=== PATIENT | male | born 1975 | race Two or more races ===

== ENCOUNTER 2018-02-24 18:53 | Inpatient (IN) | payer MEDICAID ==
[~2018-02-24] VITALS: Ht 152.4 cm; Wt 52.2 kg
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
[2018-02-24] MEDS ORDERED: TDAP [DIPH/PERTUSSIS/TET] 0.5 ML VIAL IM ONE ×2 (19:30→20:03)
[2018-02-24] MEDS ORDERED: ONDANSETRON HCL/PF 4 MG/2 ML VIAL ONE (20:15)
--- NOTE | 2018-02-24 20:22 | NUR ---
18g left fa iv started, blood sample obtianed and sent to lab. medicated pt as ordered
[2018-02-24 20:27] LABS: BASOPHILS % (AUTO) 0.3 % (0.0-2.0); EOSINOPHILS % (AUTO) 2.9 % (0.0-6.0); HEMATOCRIT 45 % (39-51); HEMOGLOBIN 15.4 g/dL (13.5-17.5); LYMPHOCYTES # (AUTO) 1.5 /CMM (0.8-4.8); LYMPHOCYTES % (AUTO) 13.8 % (20.0-44.0); MEAN CORPUSCULAR HGB CONC 34 g/dl (31.0-36.0); MEAN CORPUSCULAR VOLUME 91 fL (80-96); MONOCYTES # (AUTO) 0.5 /CMM (0.1-1.30); MONOCYTES % (AUTO) 4.8 % (2.0-12.0); NEUTROPHILS # (AUTO) 8.3 /CMM (1.8-8.9); NEUTROPHILS % (AUTO) 78.2 % (43.0-81.0); PLATELET COUNT (AUTO) 408 /CMM (150-450); RDW COEFFICIENT OF VARIATION 12.9 (11.5-15.0); RED BLOOD CELL COUNT(AUTO) 4.99 MIL/uL (4.5-6.0); WHITE BLOOD COUNT (AUTO) 10.6 K/uL (4.3-11.0)
[2018-02-24] MEDS ORDERED: ONDANSETRON HCL/PF 4 MG/2 ML VIAL IVP ONE (20:30)
[2018-02-24] MEDS ORDERED: IV NS 0.9% 1,000 ML BAG IV ONE (20:30)
[2018-02-24 20:42] LABS: INR 0.92 (0.85-1.15)
[2018-02-24 20:44] LABS: ALANINE AMINOTRANSFERASE 25 U/L (12-78); ALBUMIN 3.1 g/dL (3.4-5.0); ALCOHOL, BLOOD < 3 mg/dL (0-0); ALKALINE PHOSPHATASE 90 U/L (46-116); ASPARTATE AMINOTRANSFERASE 21 U/L (15-37); BILIRUBIN,TOTAL 0.4 mg/dL (0.2-1.0); CALCIUM, SERUM 8.5 mg/dL (8.5-10.1); CARBON DIOXIDE 26 mmol/L (21-32); CHLORIDE 103 mmol/L (98-107); GLUCOSE 244 mg/dL (74-106); POTASSIUM 3.7 mmol/L (3.5-5.1); SODIUM SERUM 136 mmol/L (136-145); TOTAL PROTEIN, SERUM 6.6 g/dL (6.4-8.2); UREA NITROGEN, BLOOD 16 mg/dL (7-18)
[2018-02-24 21:15] LABS: APPEARANCE,URINE Clear (CLEAR); BILIRUBIN,URINE SMALL (NEGATIVE); BLOOD, URINE Trace-lysed Ery/uL (NEGATIVE); COLOR,URINE Yellow (YELLOW); KETONES,URINE 15 (NEGATIVE); LEUKOCYTE ESTERASE ,URINE Negative (NEGATIVE); NITRITE, URINE Negative (NEGATIVE); PH,URINE 5.5 (5.0-8.0); PROTEIN,URINE Negative (NEGATIVE); UGLUCOSE 250 MG/DL mg/dL (NEGATIVE)
[2018-02-24 21:30] LABS: BACTERIA,URINE Few /HPF (None Seen); SQUAMOUS EPITHELIAL CELL,UR Few /HPF (None Seen); WBC,URINE 0-2 /HPF (0-3)
[2018-02-24 21:40] VITALS: BP 115/72
[2018-02-24 21:45] VITALS: BP 115/72
--- NOTE | 2018-02-24 21:48 | NUR ---
TRANSPORTED PT TO TELE BED
[2018-02-24] MEDS ORDERED: HYDROCODONE/APAP 5/325MG 1 EACH TABLET PO PRN (23:30)
[2018-02-24] MEDS ORDERED: ONDANSETRON HCL/PF 4 MG/2 ML VIAL IVP PRN (23:30)
[2018-02-24] MEDS ORDERED: ACETAMINOPHEN 325 MG TABLET PO PRN (23:30)
[2018-02-24] MEDS ORDERED: MAGNESIUM HYDROXIDE 30 ML UDC PO PRN (23:30)
[2018-02-24] MEDS ORDERED: Z GUARD REMEDY 2 OZ OINT TP PRN (23:30)
[2018-02-24] MEDS ORDERED: ZOLPIDEM TARTRATE 5 MG TABLET PO PRN (23:30)
[2018-02-25] VITALS: BP 106/69
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
--- NOTE | 2018-02-25 03:54 | NUR ---
sinus abrahan on monitor, was kept on non rebreather mask since from ER, Billy,tire cord weaver came and saw pt and no order change. will continue to monitor,all needs attended.call light at reached.
[2018-02-25 04:16] VITALS: BP 147/84
[2018-02-25 04:36] VITALS: BP 147/84
[2018-02-25 06:13] LABS: BASOPHILS % (AUTO) 0.3 % (0.0-2.0); EOSINOPHILS % (AUTO) 3.6 % (0.0-6.0); HEMATOCRIT 42 % (39-51); HEMOGLOBIN 14.2 g/dL (13.5-17.5); LYMPHOCYTES # (AUTO) 2.1 /CMM (0.8-4.8); LYMPHOCYTES % (AUTO) 22.7 % (20.0-44.0); MEAN CORPUSCULAR HGB CONC 34 g/dl (31.0-36.0); MEAN CORPUSCULAR VOLUME 92 fL (80-96); MONOCYTES # (AUTO) 0.8 /CMM (0.1-1.30); MONOCYTES % (AUTO) 8.3 % (2.0-12.0); NEUTROPHILS # (AUTO) 6.1 /CMM (1.8-8.9); NEUTROPHILS % (AUTO) 65.1 % (43.0-81.0); PLATELET COUNT (AUTO) 358 /CMM (150-450); RDW COEFFICIENT OF VARIATION 13.4 (11.5-15.0); RED BLOOD CELL COUNT(AUTO) 4.57 MIL/uL (4.5-6.0); WHITE BLOOD COUNT (AUTO) 9.3 K/uL (4.3-11.0)
[2018-02-25 06:44] LABS: CALCIUM, SERUM 8.2 mg/dL (8.5-10.1); CREATININE 0.8 mg/dL (0.6-1.3); MAGNESIUM 1.7 mg/dL (1.8-2.4); PHOSPHORUS 2.6 mg/dL (2.5-4.9); POTASSIUM 4.4 mmol/L (3.5-5.1)
--- NOTE | 2018-02-25 07:30 | NUR ---
POCKET CLOSER NOTES PATIENT IS A/O X4, RECEIVED PATIENT ON NON-REBREATHER MASK @10LPM. SINUS RHYTHM HR 61 ON TELE MONITOR. IV SITE ON LEFT FOREARM 18g: PATENT AND INTACT. FLUSHES WELL. DENIES ANY PAIN. SAFETY MEASURES IN PLACE. WILL CONTINUE TO MONITOR. CALL IN WITHIN REACH.
[2018-02-25 08:00] VITALS: BP_SYST 105; BP_SYST 145; BP_DIAS 64; BP_DIAS 74
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
--- NOTE | 2018-02-25 10:28 | NUR ---
Seen by Carlin Park NP. Titrated Oxygen to 2lpm via nasal cannula. Patient tolerated well. O2 sat 99% with no SOB noted. Per Jarett Park NP, Dr. Bhagat to see patient for consult.
[2018-02-25] MEDS ORDERED: IOHEXOL-300 100 ML VIAL IV ONE (11:30)
[2018-02-25] MEDS ORDERED: CT SWABBABLE VALVE TRANS SET 1 EA INFUS.SET MC ONE (11:30)
[2018-02-25] MEDS: Magnesium 1GM/D5W 100ML PREMIX 100 ML IV SCH ×2 (12:30→13:25)
[2018-02-25 16:00] VITALS: BP_SYST 106; BP_SYST 110; BP_DIAS 60; BP_DIAS 61
--- NOTE | 2018-02-25 18:44 | NUR ---
MS RN CLOSING NOTES VITAL SIGNS REMAINED STABLE. AFEBRILE DURING SHIFT. LEFT FOREARM 18g. PATENT AND INTACT. LOW MAGNESIUM TODAY 1.7, SUPPLEMENTED ORDERED. OXYGEN AT 2LPM VIA NASAL CANNULA, PATIENT TOLERATED WELL. O2 SAT 99-100%. PER DR. MCKNIGHT, PATIENT IS STABLE FOR DISCHARGE WITH APPROPRIATE PRECAUTIONS. SAFETY MEASURES IN PLACED. CALL LIGHT WITHIN REACH. WILL ENDORSED TO ONCOMING RN.
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
[2018-02-25 20:00] VITALS: BP 102/60
--- NOTE | 2018-02-25 20:30 | NUR ---
MS/FIELD SOFTWARE ENGINEER; RECEIVED PT'S REPORTS FROM MICHAEL JADE FOR CONTINUITY OF CARE. AT THIS TIME PT IN BED SLEEPING . BREATHING NON LABORED. WITH O2 2L NC ON. BED ON LOWER POSITION AND LOCKED FOR SAFETY. SIDE RAILS X2 ARE UP FOR SAFETY. URINAL AT THE BED SIDE WITH 200 ML CLEAR YELLOW URINE. WILL CONTINUE TO MONITOR. CALL LIGHT WITHIN REACH.
--- NOTE | 2018-02-25 20:41 | NUR ---
RN NOTES: GAVE REPORT TO MARGARET KUMARI FOR CHARLEEN.
--- NOTE | 2018-02-26 06:42 | NUR ---
MS/GENERAL SURGEON; SLEPT FAIRLY. BREATHING NON LABORED. VOIDED USED URINAL. DENIES PAIN. CONTINUE TO MONITOR. CALL LIGHT AND URINAL WITHIN REACH. WILL ENDORSE TO THE DAY SHIFT NURSE.
[2018-02-26 07:07] LABS: CALCIUM, SERUM 8.4 mg/dL (8.5-10.1); CREATININE 0.8 mg/dL (0.6-1.3); MAGNESIUM 1.8 mg/dL (1.8-2.4); POTASSIUM 3.7 mmol/L (3.5-5.1)
--- NOTE | 2018-02-26 13:32 | NUR ---
DAYSI and MICHAEL Hoyos met with pt. bedside to discuss discharge plan. MICHAEL Hoyos assisted in Algerian translation. DAYSI gave pt. the following homeless resources: List of Homeless shelters, [facility] [place] [facility]. DAYSI encouraged pt. to go to [facility] to get linked with homeless services. Pt. stated he will go to [facility] located at [address] [place] [address]. OR to get linked with services. Pt. stated, " I need to change my life and find work so I can have some money". Homeless Patient Waiver Form was signed by pt. and placed in pt's chart. Pt. will be given two bus tokens upon discharge. No other social service needs are requested this time. SW is available, if needed.
== END 2018-02-26 13:50 | disposition home or self-care (01) | DRG 930 ==
LOC: ER 18:55 → TELE 20:48 → MED 02-25 09:03
PROVIDERS: ADMIT Nurse Practitioner Acute Care; ATTEND Nurse Practitioner Acute Care
DX: S27.2XXA Traumatic hemopneumothorax, initial encounter (principal); S31.631A Puncture wound without foreign body of abdominal wall, left upper quadrant with penetration into peritoneal cavity, initial encounter; S27.331A Laceration of lung, unilateral, initial encounter; T79.7XXA Traumatic subcutaneous emphysema, initial encounter; S37.042A Minor laceration of left kidney, initial encounter; E83.42 Hypomagnesemia; X99.8XXA Assault by other sharp object, initial encounter; Y92.9 Unspecified place or not applicable; Z59.0 Homelessness; F17.210 Nicotine dependence, cigarettes, uncomplicated; Z85.830 Personal history of malignant neoplasm of bone; R73.9 Hyperglycemia, unspecified; Y93.9 Activity, unspecified; Z92.21 Personal history of antineoplastic chemotherapy
CPT/HCPCS: 36415; 71045-TC; 71250-TC; 74018; 74178; 80048-TC; 80061-TC; 80076-TC; 80305; 81000-TC; 83735-TC; 84100-TC; 85025-TC; 85730-TC; 86850-TC; 87081-TC; 90715; 94799-TC; A4606; G0480; J2405; J3475; J7030; Q9967; Z7610